=== PATIENT | female | born 1955 | race Two or more races ===

== ENCOUNTER 2019-07-19 08:28 | Outpatient (CLI) | payer MEDICAID ==
[~2019-07-19] VITALS: Ht 175.3 cm; Wt 72.6 kg
[2019-07-19] MEDS ORDERED: METFORMIN HCL500 M1 ORAL (09:35)
[2019-07-19] MEDS ORDERED: EXFORGE 10-1601 EACH ORAL (09:35)
[2019-07-19 11:08] VITALS: BP 100/74
--- NOTE | 2019-07-19 15:00 | Consultation ---
DATE OF CONSULTATION: 07/19/2019 CONSULTING PHYSICIAN: Edgard Venegas M.D. CHIEF COMPLAINT: Screening colonoscopy evaluation. PAST MEDICAL HISTORY: History of hypertension, diabetes, and colonic polyps. ALLERGIES: No known drug allergies. MEDICATIONS: Please see medication reconciliation list. SOCIAL HISTORY: The patient denies any tobacco, alcohol, or drug abuse. FAMILY HISTORY: No family history of GI malignancies. REVIEW OF SYSTEMS: A 10-point review of systems was performed and positive for constipation. PHYSICAL EXAMINATION: VITAL SIGNS: Temperature 97.6, blood pressure 100/74, pulse 79, respirations 20. HEENT: Normocephalic and atraumatic. Sclerae anicteric. NECK: Supple. No evidence of obvious lymphadenopathy. CARDIOVASCULAR: Regular rate and rhythm. Plus S1, S2. No obvious murmur. LUNGS: Decreased breath sounds bilaterally at bases on the supine exam. ABDOMEN: Soft and nontender. No rebound. No guarding. No peritoneal sign. EXTREMITIES: No cyanosis. No clubbing. No edema. ASSESSMENT AND PLAN: This is a 63-year-old female with a past medical history of colonic polyps. Last colonoscopy about 12 years ago. She had two polyps. She screening colonoscopy evaluation. The patient was given information about colonoscopy, risks and benefits of the procedure was explained to her. Prep was given and we are waiting for authorization to be fair put to schedule the patient. Edgard Venegas M.D. DR: NISHANT JOB#: [id number] CC:
== END 2019-07-19 12:30 | disposition home or self-care (01) ==
LOC: PAN 08:28
DX: K63.5 Polyp of colon (principal); E11.9 Type 2 diabetes mellitus without complications; I10 Essential (primary) hypertension; Z86.010 Personal history of colon polyps